=== PATIENT | male | born 1955 | race African-American/Black ===

== ENCOUNTER → 2017-03-14 | Outpatient (CLI) | payer OTHER ==
--- NOTE | 2017-03-15 07:18 | Diagnostic Imaging Report ---
EXAMINATION: MRI of the lumbar spine without contrast HISTORY: Low back pain radiating to the right lower extremity with weakness for the last 6 weeks COMPARISON: None available TECHNIQUE: Sagittal T1, T2, STIR; axial T2 and proton density. FINDINGS: It is assumed that there are 5 lumbar vertebrae. Curvature/Alignment: Normal lordosis. Vertebrae: No evidence of recent fracture, infection, or neoplasm. Conus: Normal, terminating at T12-L1 Cauda equina: Unremarkable. Lower thoracic: Unremarkable. Paraspinal soft tissues: Partially visualized T2 hyperintense possible cysts in the kidney and in the liver (perhaps/hemangiomas). Degenerative changes: L1-L2: Unremarkable. L2-L3: Unremarkable. L3-L4: Minimal symmetric disc bulge and mild facet arthrosis without canal or foraminal stenoses L4-L5: Advanced facet arthrosis result in grade 1-2 spondylolisthesis. Symmetric disc bulge, ligamenta flava thickening and facet hypertrophy. Severe spinal canal and moderate foraminal stenoses. L5-S1: Minimal symmetric disc bulge and facet arthrosis without stenoses Sacroiliac joints: Moderate degenerative changes in the partially visualized segments IMPRESSION: 1. Grade 1-2 degenerative anterolisthesis at L4-5. 2. Severe degenerative spinal canal and moderate bilateral foraminal stenosis at L4-5. 3. Partially visualized T2 hyperintense foci in the liver and kidneys, if clinically indicated an abdomen ultrasound is recommended. Signed by: Dr. Radha Montes M.D. on 03/15/2017 7:15 AM
== END ==
LOC: MRI 14:51
PROVIDERS: ATTEND Family Medicine
DX: S33.5XXD Sprain of ligaments of lumbar spine, subsequent encounter (principal)
CPT/HCPCS: 72148